=== PATIENT | male | born 1975 | race African-American/Black ===

== ENCOUNTER 2024-05-07 13:49 | Outpatient (CLI) | payer OTHER, SELFPAY ==
--- NOTE | 2024-05-07 13:54 | ECG_ITS ---
Test Date: 2024-05-07 14:09:14 Measurements Intervals [place] Rate: 80 P: 67 SD: 179 QRS: 21 QRSD: 92 T: 2 QT: 336 QTc: 389 Interpretive Statements SINUS RHYTHM NONSPECIFIC T-WAVE ABNORMALITY ABNORMAL ECG Electronically Signed On 05-07-2024 16:25:35 CDT by Pradeep Gomez M.D.
== END 2024-05-07 13:50 | disposition home or self-care (01) ==
PROVIDERS: PCP Internal Medicine; Visit Provider Otolaryngology
DX: Z01.818 Encounter for other preprocedural examination (principal); E78.5 Hyperlipidemia, unspecified; R94.31 Abnormal electrocardiogram [ECG] [EKG]
CPT/HCPCS: 93005

== ENCOUNTER 2024-05-11 00:27 | Day surgery (SDC) | payer OTHER, SELFPAY ==
[2024-05-05 12:33] VITALS: BMI 38.2
--- NOTE | 2024-05-05 12:34 | PC.NURSE ---
Report to the Outpatient Waiting Room, entrance under the green pavilion located off [facility], at time _1030_ on date _[id number]_. Planned Procedure Time: _1230_. Time changes happen often and if your time is changed the preop area will call you the afternoon before. - You and your visitor will be asked to self-screen and do not enter if you have any COVID symptoms. - A mask is optional within the hospital at this time. Patients may have clear liquids (water, carbonated beverages, clear teas, apple juice) until 3 hours prior to surgery with a maximum of 20 ounces. - No food from midnight until time of surgery Take the following medications with a SIP of water the morning of surgery: __Flonase DO NOT STOP ANY OF YOUR OTHER PRESCRIPTION MEDICATIONS PRIOR TO SURGERY ?EXCEPT THE FOLLOWING Medications to discontinue per physician ____Vitamin D3 Date to take last [id number] Please no make-up, nail slovenian, hairspray, perfume, deodorant, or body powder the day of surgery. No jewelry (including any body piercings) or valuables the day of surgery, leave them at home. Please take a shower or bath the night before, or the morning of, surgery with an antibacterial soap. Wear comfortable, loose fitting clothing. - Jewelry must be removed prior to entering the operating room. Rings and piercings that are not removed may be cut off. - The hospital will not accept responsibility for valuables. - Please leave all valuables, including medications, at home the day of surgery. If you are going home after surgery, a licensed construction driver must drive you home. - NO public transportation without another adult if you receive anesthesia. - We recommend that an adult stay with you for 24 hours following discharge. - We also recommend that you do not drive, make important decision, drink alcoholic beverages, or take any drugs that were not prescribed by your health care provider for at least 24 hours after your discharge time. Follow any additional instructions given to you from your surgeon. If you or anyone in your household have experienced Covid symptoms in the past week, please notify your surgeon or the nurse liaison at the phone number below for possible testing. Telephone instructions given to _Chen__and asked if any additional questions and then verbalized understanding. Patient advised to call surgeon office or pre surgery nurse liaison [phone] if any additional questions.
[2024-05-11] VITALS (11 sets, daily range): BP systolic 112–176; BP diastolic 55–106; PULSE 72–90; RESP 12–20; TEMP 36.8; O2SAT 97–100; BMI 38.5
--- NOTE | 2024-05-11 10:54 | WPDHPUPDATE1 ---
History and Physical Update Update Date/Time: 05/11/24 10:54 History and Physical has been reviewed, including an updated exam of the patient. There are NO changes in the patient's condition. Risks, benefits, and alternatives have been discussed and questions answered. Patient agrees to proceed with procedure.
--- NOTE | 2024-05-11 10:58 | PM.IMHP ---
H&P: HPI History of Present Illness Date/Time: 05/11/24 10:58 Chief Complaint: nasal dyspnea Review of Systems Review of Systems: All systems reviewed & are unremarkable except as noted in HPI and below PMFSH Social History Social History Smoking packs per day: 1 Smoking cigarettes per day: 20.0 Years smoked: 20 Smoking pack-years: 20.00 Smoking status: Former smoker Smoking end date: 05/05/12 Alcohol intake: current Drinks per week: 2 Living arrangements: with family Spiritual care concerns: No Meds Home Medications and Allergies Home Medications Medication Instructions Recorded Confirmed Type atorvastatin 20 mg tablet 20 mg PO DAILY 05/05/24 05/05/24 History cholecalciferol (vitamin D3) 125 125 mcg PO DAILY 05/05/24 05/05/24 History mcg (5,000 unit) capsule fluticasone propionate 50 1 spray intranasal DAILY 05/05/24 05/05/24 History mcg/actuation nasal spray,suspension testosterone cypionate 200 mg/mL 200 mg IM DAILY 05/05/24 05/05/24 History intramuscular oil Allergies Allergy/AdvReac Type Severity Reaction Status Date / Time Sulfa (Sulfonamide Allergy Intermediate Itching Verified 05/05/24 12:23 Antibiotics) Exam Narrative: deviated nasal septum, turbinate hypetrophy, rest of exam is unremarkable Assessment and Plan Assessment and plan (1) Deviated nasal septum: Code(s): J34.2 - Deviated nasal septum Status: Acute Plan Chen has nasal septal deviation and bilateral inferior turbinate hypertrophy and is here today for septoplasty and bilateral inferior turbinoplasty. r/b/a reviewed with him, all questoins answered and he understands and agrees to proceed with the above surgery. Refer to outpt H&P for further details.
--- NOTE | 2024-05-11 10:59 | W.PM.PROC2 ---
Procedure Note - Detailed Date of Procedure 05/11/24 Pre-op Diagnosis deviated septum, turbinate hypertrophy Post-op Diagnosis Same Procedure Performed septoplasty and bilateral inferior turbinoplasty Surgeon Lane Dempsey MD Anesthesia General Indications nasal dyspnea Findings significant turbinate hypetrophy, high right septal deviation and maxillary crest deviation to the right. Montano splints placed Description of Procedure After obtaining informed consent and proper site verification the patient was brought to the operating room and placed on the operating table in the supine position. They were placed under general endotracheal anesthesia by the anesthesia provider. The patient was then draped in standard fashion for septoplasty and turbinoplasty. A timeout was performed and the correct patient and procedure were verified. The nasal cavity was injected with 1% lidocaine with 1-100,000 epinephrine and packed with afrin-soaked cottonoid pledgets. ? Attention was then directed to the nasal septum. A hemitransfixion incision was made in the left caudal septum and a mucoperichondrial flap was elevated in the usual fashion. The flap was elevated under endoscopic visualization and the remainder of the case was performed with endoscopic assistance. Using a D-knife, an incision was made through the cartilaginous septum with care to preserve the appropriate caudal and dorsal ?L-strut? of cartilage. The cartilage was then disarticulated from the bony-cartilaginous junction and the deviated cartilage was removed. Further deviated bone and cartilage was removed from the maxillary crest and posterior bony septum with care to avoid injury to the mucoperichondrial flap using a combination of dissection and Readfield-Pfeiffer forceps. Once this was completed, the hemitransfixion incision was closed using simple interrupted 4-0 chromic suture. A quilting stitch to reapproximate the mucoperichondrial flaps was then placed using 4-0 plain gut suture on a Spencer needle. ? Next attention was directed to the turbinates. Using a 0? telescope and 2mm turbinate blade microdebrider, a stab incision was made in the anterior face of the turbinate and dissection was carried posterior to perform submucosal resection. Next the turbinate was outfractured using a blunt instrument. A similar procedure was then performed on the right-hand side without difficulty. Montano splints covered in mupirocin ointment were placed in the nasal cavity and secured to the membranous septum using a 3-0 Prolene suture. ?The patient was awakened from general anesthesia extubated in the operating room, and transported to the recovery room in stable condition without complication. Estimated Blood Loss 1 Drains No Packing Yes (montano splints) Pathology None sent Complications No immediate complications Condition Stable Disposition PACU
--- NOTE | 2024-05-11 11:11 | WPDANESEPPF ---
Anes - Initial Pre Proc Eval Procedure: Operation Date: 05/11/24 12:30 Proposed Procedures p Septoplasty, - Lane Dempsey MD s Bilateral Turbinate Reduction - Lane Dempsey MD Date/Time: 05/11/24 11:11 Surgeon: Lane Dempsey MD Pre Op Diagnosis: deviated septum, turbinate hypertrophy Patient Data Age: 48 Gender: M Height: 1.79 m Weight: 122.7 kg Allergies Allergy/AdvReac Type Severity Reaction Status Date / Time Sulfa (Sulfonamide Allergy Intermediate Itching Verified 05/11/24 11:16 Antibiotics) Home Medications Medication Instructions Recorded Confirmed Type atorvastatin 20 mg tablet 20 mg PO DAILY 05/05/24 05/05/24 History cholecalciferol (vitamin D3) 125 125 mcg PO DAILY 05/05/24 05/05/24 History mcg (5,000 unit) capsule fluticasone propionate 50 1 spray intranasal DAILY 05/05/24 05/05/24 History mcg/actuation nasal spray,suspension testosterone cypionate 200 mg/mL 200 mg IM DAILY 05/05/24 05/05/24 History intramuscular oil Patient hx anesthesia problems: none and other (Pt reports that he has been previously difficult to sedate in the dentist office. ) Family hx anesthesia problems: none Results Review: All pre-operative results and documents have been reviewed as part of the pre-operative evaluation. [facility] Social History Social History Smoking packs per day: 1 Smoking cigarettes per day: 20.0 Years smoked: 20 Smoking pack-years: 20.00 Smoking status: Former smoker Smoking end date: 05/05/12 Alcohol intake: current Drinks per week: 2 Living arrangements: with family Spiritual care concerns: No Anes - Eval Final PreProcedure Day of Procedure 05/11/24 11:11 Patient weight: obese Heart: regular rate and rhythm Lungs: clear to auscultation Airway: Mallampati scale class II Neurological: alert and oriented Last oral intake: >/= 8 hours ASA classification: II Emergent: no Anesthetic plan: proceed Anesthesia type and monitoring: general ETT and standard monitoring Results Review: All pre-operative results and documents have been reviewed as part of the pre-operative evaluation. Hyperlipidemia, DARRIN on CPAP. Informed Consent: The patient's anesthetic plan and its attendant risks and benefits were discussed with the patient/family/POA. Questions were solicited and answers provided to the satisfaction of the patient/family/POA.
[2024-05-11] MEDS: ceFAZolin 3 GM/D5W 100 ML 100 ML IVPB (11:22)
[2024-05-11] MEDS: MUPIROCIN 2% OINT 22 GM TUBE 1 APPLIC TOPICAL (11:57)
[2024-05-11] MEDS: LACTATED RINGERS 1,000 ML 30 ML IV CONT (12:16)
[2024-05-11] MEDS: oxyCODONE HCL (*CRX) 5 MG TAB IR PO (14:25)
--- NOTE | 2024-05-11 15:23 | SUR.PHASEII ---
1515: Drip pad changed
== END 2024-05-11 15:18 | disposition home or self-care (01) ==
PROVIDERS: PCP Internal Medicine; Visit Provider Otolaryngology
PROC: (CPT 30520; principal; 2024-05-11 12:30)
PROC: (CPT 30520; 2024-05-11 12:30)
DX: J34.2 Deviated nasal septum (principal); J34.3 Hypertrophy of nasal turbinates; Z87.891 Personal history of nicotine dependence; E66.9 Obesity, unspecified; Z68.38 Body mass index [BMI] 38.0-38.9, adult
CPT/HCPCS: 30520; 30140; 93005; A9270; J0690; J1100; J2250; J2405; J2704; J3010; J7120